=== PATIENT | male | born 1995 | race Caucasian/White ===

== ENCOUNTER 2018-06-22 09:19 | Emergency (ER) | payer SELFPAY ==
[2018-06-22 09:50] VITALS: BMI 28.8
[2018-06-22] MEDS ORDERED: DEXAMETHASONE SOD PHOSPHATE 10 MG/1 ML VIAL IVPUSH ONE (10:28)
[2018-06-22] MEDS ORDERED: IBUPROFEN 800 MG/8 ML IJ IVPB ONE ×2 (10:28→10:44)
[2018-06-22] MEDS ORDERED: SODIUM CHLORIDE 1,000 ML IV STA (10:28)
--- NOTE | 2018-06-22 10:34 | PDOC ---
Attending Attestation - Resident Resident Name: Cherry Silver - ED Attending Attestation I have performed the following: I have examined & evaluated the patient, The case was reviewed & discussed with the resident, I agree w/resident's findings & plan, Exceptions are as noted - HPI HPI: 06/22/18 10:31 22 yo M presenting to the ER with a complaint of throat pain Pt symptoms have been present for the past 4 days (+) fevers and chills Pt reports pain with swallowing, (+) voice changes, (+) difficulty tolerating secretions No bodyaches - Physicial Exam PE: 06/22/18 10:30 GENERAL: The patient is in no acute distress, hot potatoe voice ENT: Ears normal, nares patent, oropharynx clear without exudates. Moist mucous membranes. Left tonsillar pillar enlargement, no exudate noted NECK: Normal range of motion, supple, no nuchal rigidity (+) LAD LUNGS: Breath sounds equal, clear to auscultation bilaterally. No wheezes, and no crackles. HEART:Regular rate and rhythm, normal S1 and S2 without murmur, rub or gallop. ABDOMEN: Soft, nontender, normoactive bowel sounds. EXTREMITIES: Normal range of motion, no edema. NEUROLOGICAL: Cranial nerves II through XII grossly intact. Normal speech. No focal neurological deficits. SKIN: Warm, Dry, normal turgor, no rashes or lesions noted. - Medical Decision Making 06/22/18 10:33 22 yo M p/w throat pain and difficulty swallowing DD: Pharyngitis, Strep pharyngitis, APPLICATIONS COORDINATOR, mononucleosis Will do: Basic labs Decadron Motrin IV hydration Consider CT with contrast 06/24/18 09:20 CT sent to imaging chemistry quality control analyst CT: Extensive edema is seen involving the left tonsillar region, soft palate, uvula and left hypopharynx. There is evidence of a peritonsillar abscess measuring 1.7 x 1.4 cm. Mild adenopathy of the neck is felt to be reactive Pt state he feels much better Call placed to Dr Aguila He states pt can be discharged if he feels better He can be seen in the office on Sunday (in 2 days) Pt tolerating liquids, pain improved Will discharge to home Pt asked to return to the ER in 24 hours for re assessment Discharged on Clindamycin Clinical Impression: pharyngeal infection, initial presentation APPLICATIONS COORDINATOR, initial presentation
[2018-06-22] MEDS ORDERED: DEXAMETHASONE SOD PHOSPHATE 10 MG/1 ML VIAL ONE (10:44)
[2018-06-22 11:23] LABS: BASO % 0.5 % (0-2.0); EOS % 0.1 % (0-4.5); HEMATOCRIT 42.8 % (35.4-49); HEMOGLOBIN 14.2 GM/dL (11.7-16.9); LYMPH % 4.3 % (8-40); MCH 29.9 pg (25.7-33.7); MCHC 33.1 g/dl (32.0-35.9); MEAN CELL VOLUME 90.3 fl (80-96); MEAN PLT VOLUME 7.3 fl (7.5-11.1); MONO % 4.9 % (3.8-10.2); NEUT % 90.2 % (42.8-82.8); PLATELET COUNT 315 K/MM3 (134-434); RBC 4.74 M/mm3 (4.00-5.60); RDW 12.5 % (11.9-15.9); WHITE BLOOD COUNT 21.9 K/mm3 (4.0-10.0)
[2018-06-22 11:42] LABS: ALBUMIN 3.5 g/dl (3.4-5.0); ALK PHOS 92 U/L (45-117); ANION GAP 10 MMOL/L (8-16); BILIRUBIN,TOTAL 0.6 mg/dL (0.2-1); BLOOD UREA NITROGEN 21 mg/dL (7-18); CALCIUM 8.1 mg/dL (8.5-10.1); CHLORIDE 105 mmol/L (98-107); CO2 25 mmol/L (21-32); GLUCOSE,RANDOM 100 mg/dL (74-106); POTASSIUM 3.9 mmol/L (3.5-5.1); SGOT/AST 12 U/L (15-37); SGPT/ALT 12 U/L (13-61); SODIUM 140 mmol/L (136-145)
--- NOTE | 2018-06-22 13:02 | PDOC ---
History of Present Illness - General Chief Complaint: Sore Throat Stated Complaint: SORE THROAT Time Seen by Provider: 06/22/18 10:13 History Source: Patient Exam Limitations: No Limitations - History of Present Illness Initial Comments: 06/22/18 13:01 Pt is a 22yo M with no significant PMH presenting to ED with complaints of sore throat x3 days. Pt says the sore throat started on Sunday. He endorses pain with swallowing and difficulty, chills and fever. Denies congestion, shortness of breath, cough, headache, earache, neck stiffness, chest pain, abdominal pain , n/v/d. Has not had sore throat before. PMD: none PMH: none PSH: none Allergies:nkda Meds: none Social: denies 06/22/18 18:43 Past History - Past Medical History Allergies/Adverse Reactions: Allergies Allergy/AdvReac Type Severity Reaction Status Date / Time No Known Allergies Allergy Verified 06/22/18 09:48 Home Medications: Ambulatory Orders Clindamycin [Cleocin -] 300 mg PO Q6H #40 capsule 06/22/18 COPD: No - Suicide/Smoking/Psychosocial Hx Smoking History: Never smoked Review of Systems - Review of Systems Constitutional: Yes: Chills, Fever HEENTM: Yes: Throat Pain, Throat Swelling, Difficulty Swallowing. No: Ear Pain , Nose Pain, Hearing Loss, Mouth Pain Respiratory: No: Cough, Shortness of Breath Cardiac (ROS): No: Chest Pain, Lightheadedness, Palpitations, Syncope ABD/GI: No: Constipated, Diarrhea, Nausea, Vomiting, Abdominal cramping : No: Symptoms Reported Musculoskeletal: No: Back Pain, Joint Pain, Neck Pain Integumentary: No: Symptoms Reported Neurological: No: Headache, Numbness, Tingling, Tremors *Physical Exam - Vital Signs Last Vital Signs Temp Pulse Resp BP Pulse Ox 100.5 F H 112 H 18 137/93 96 06/22/18 09:48 06/22/18 09:48 06/22/18 09:48 06/22/18 09:48 06/22/18 09:48 - Physical Exam General Appearance: Yes: Nourished, Appropriately Dressed, Other (hot potato voice). No: Apparent Distress HEENT: positive: EOMI, NEGRO, TMs Normal, Other (L tonsillar swelling with uvula shift). negative: Pharyngeal Erythema, Tonsillar Exudate, Sinus Tenderness Neck: positive: Trachea midline, Supple, Lymphadenopathy (L). negative: Stridor , Lymphadenopathy (R) Respiratory/Chest: positive: Lungs Clear, Normal Breath Sounds. negative: Stridor, Wheezing Cardiovascular: positive: Regular Rate, S1, S2, Tachycardia. negative: Edema, JVD, Murmur Vascular Pulses: Carotid (R): 2+, Carotid (L): 2+, Dorsalis-Pedis (R): 2+, Doralis-Pedis (L): 2+ Gastrointestinal/Abdominal: positive: Normal Bowel Sounds, Soft. negative: Tender Musculoskeletal: negative: CVA Tenderness Extremity: positive: Normal Capillary Refill. negative: Swelling, Calf Tenderness Integumentary: positive: Normal Color, Dry, Warm, Rash Neurologic: positive: manufacturing specialist II-XII NML intact, Fully Oriented, Alert, Normal Mood/ Affect, Normal Response, Motor Strength / ED Treatment Course - LABORATORY CBC & Chemistry Diagram: 06/22/18 11:00 06/22/18 11:00 - ADDITIONAL ORDERS Additional order review: Laboratory Results 06/22/18 06/22/18 11:00 11:00 Sodium 140 Potassium 3.9 Chloride 105 Carbon Dioxide 25 Anion Gap 10 BUN 21 H Creatinine 1.0 Creat Clearance w eGFR 94.33 Random Glucose 100 Lactic Acid 0.9 Calcium 8.1 L Total Bilirubin 0.6 AST 12 L ALT 12 L Alkaline Phosphatase 92 Total Protein 8.0 Albumin 3.5 06/22/18 11:00 RBC 4.74 MCV 90.3 MCHC 33.1 RDW 12.5 MPV 7.3 L Neutrophils % 90.2 H Lymphocytes % 4.3 L Monocytes % 4.9 Eosinophils % 0.1 Basophils % 0.5 - RADIOLOGY Radiology Studies Ordered: Category Date Time Status SOFT TISSUE NECK CT WITH CONTR [CT] Stat CT Scan 06/22/18 10:48 Ordered - Medications Given in the ED: ED Medications Discontinued Medications Generic Name Dose Route Start Last Admin Trade Name Freq PRN Reason Stop Dose Admin Dexamethasone Sodium Phosphate 10 mg 06/22/18 10:28 06/22/18 11:04 Decadron Injection - IVPUSH 06/22/18 10:29 10 mg ONCE ONE Administration Sodium Chloride 1,000 mls @ 1,000 mls/hr 06/22/18 10:28 06/22/18 11:04 Normal Saline - IV 06/22/18 11:27 1,000 mls/hr ASDIR STA Administration Ibuprofen 800 mg 06/22/18 10:28 06/22/18 11:03 Caldolor Injection - IVPB 06/22/18 10:29 800 mg ONCE ONE Administration Medical Decision Making - Medical Decision Making 06/22/18 18:38 Pt is a 22yo M with no significant PMH presenting to ED with complaints of sore throat x3 days. Pt says the sore throat started on Sunday. He endorses pain with swallowing and difficulty, fevers and chills. Denies congestion, shortness of breath, cough, headache, earache, neck stiffness, chest pain, abdominal pain, n/v/d. Has not had sore throat before. Vitals: febrile, saturating well on RA PE: L tonsillar swelling with uvula deviation, saliva in mouth, hot potato voice, L LAD. No stridor, no trismus. lungs cta. normal TM. ddx includes but not limited to uniform force captain, rpa, strep -labs, lactic acid, blood cultures -CT neck -ibuprofen, decadron, iv fluids pt saturating high 90s on RA. denies difficulty breathing. labs significant for white count of 21. all other labs wnl CT: L BAKER PASTRY 1.7x1.4 cm with surrounding tissue edema. [place] positive Called Dr. Jimenez who stated pt can be given 2g Ceftriaxone in ED, 10mg decadron (given), observed and if no changes pt can be dc home with rx of 300mg Clindamycin QID x10d and f/u in office Sunday. Pt states he is feeling fine, no trouble breathing. Will dc home with rx and ENT f/u. Pt understands. Given return precautions: difficulty breathing, throat swelling, inability to tolerate secretions 06/22/18 18:44 *DC/Admit/Observation/Transfer Diagnosis at time of Disposition: Peritonsillar abscess Mononucleosis Qualifiers: Infectious mononucleosis etiology: unspecified organism Infectious mononucleosis complication: other complications Qualified Code(s): B27.99 - Infectious mononucleosis, unspecified with other complication - Discharge Dispostion Disposition: HOME Condition at time of disposition: Good Decision to Admit order: No - Prescriptions Prescriptions: Clindamycin [Cleocin -] 300 mg PO Q6H #40 capsule - Referrals Referrals: Richi Jimenez MD [Staff Physician] - - Patient Instructions Printed Discharge Instructions: DI for Peritonsillar Abscess -- Adult Additional Instructions: Hoy te vieron en la pranay de emergencias por dolor de garganta e hinchazn. Tienes un absceso peritonsillar en el lado ivonne. Hablamos con un mdico ENT , el Dr. Jimenez, quien dice que lo vers en la oficina el lun. [place] receta para un antibitico fue enviada a white farmacia. Por favor tome segn las indicaciones. Por favor tree al Dr. Jimenez en la oficina. La informacin se proporciona a continuacin. Regrese a la pranay de emergencias si tiene problemas para respirar, la hinchazn se siente peor, no puede tragar nada o si aparece algn sntoma nuevo. Gail You were seen in the emergency room today for throat pain and swelling. You have a peritonsillar abscess on the left side. We spoke to an ENT doctor, Dr. Jimenez who says you see him in the office on Sunday. A prescription for an antibiotic was sent to your pharmacy. Please take as directed. Please see Dr. Jimenez in the office. The information is provided below. Avoid contact sports for the next few weeks Come back to the emergency room if you have trouble breathing, the swelling feels worse, you cannot swallow anything or if any new concerning symptom develops. Thank you Print Language: GREEK - Post Discharge Activity
[2018-06-22] MEDS ORDERED: CLINDAMYCIN 600MG PREMIX IVPB 600 MG/50 ML BAG IVPB ONE (14:47)
[2018-06-22] MEDS ORDERED: CEFTRIAXONE 2,000 MG in DEXTROSE 5%-WATER - 50 ML IVPB ONE (15:01)
[2018-06-22] MEDS ORDERED: CEFTRIAXONE 2 GM/100 ML BAG IVPB ONE (15:14)
[2018-06-22 15:28] LABS: ANISOCYTOSIS 0; MACROCYTOSIS 0; PLATELET ESTIMATE NORMAL
[2018-06-22 17:39] VITALS: BP 117/71; PULSE 88; TEMP 98.9
== END 2018-06-22 17:41 | disposition home or self-care (01) ==
LOC: JER 09:19
PROC: 3E0337Z Introduction of Electrolytic and Water Balance Substance into Peripheral Vein, Percutaneous Approach (ICD-10-PCS; principal; 2018-06-22)
PROC: 3E03329 Introduction of Other Anti-infective into Peripheral Vein, Percutaneous Approach (ICD-10-PCS; 2018-06-22)
PROC: 3E0333Z Introduction of Anti-inflammatory into Peripheral Vein, Percutaneous Approach (ICD-10-PCS; 2018-06-22)
PROC: 3E0333Z Introduction of Anti-inflammatory into Peripheral Vein, Percutaneous Approach (ICD-10-PCS; 2018-06-22)
DX: J36 Peritonsillar abscess (principal); B27.90 Infectious mononucleosis, unspecified without complication; D72.828 Other elevated white blood cell count
CPT/HCPCS: 36415; 70491-TC; 80053; 83605; 85025; 86308; 87040; 87070; 87880; 99283-25; J1100; J7030